=== PATIENT | male | born 1970 | race African-American/Black ===

== ENCOUNTER 2018-02-02 22:06 | Emergency (ER) | payer MEDICAID ==
[~2018-02-02] VITALS: Ht 170.2 cm; Wt 122.0 kg
[2018-02-02 22:16] VITALS: BP 158/86
== END 2018-02-03 | disposition left against medical advice (07) ==
LOC: ER 22:06
DX: R07.89 Other chest pain (principal); E78.00 Pure hypercholesterolemia, unspecified; I10 Essential (primary) hypertension; F17.200 Nicotine dependence, unspecified, uncomplicated; Z98.890 Other specified postprocedural states; Z53.21 Procedure and treatment not carried out due to patient leaving prior to being seen by health care provider
CPT/HCPCS: 93005